=== PATIENT | female | born 1995 | race Asian ===

== ENCOUNTER 2022-08-28 14:29 | Outpatient (REF) | payer OTHER, SELFPAY ==
--- NOTE | ~2022-08-28 | US_ITS ---
EXAMINATION: US DIAGNOSTIC ULTRASOUND BREAST, LEFT CLINICAL INFORMATION: 27-year-old with chronic fullness retroareolar left breast for years. No cyclical changes. No discharge. No known family history breast cancer. No prior breast imaging. COMPARISON: None. TECHNIQUE: Ultrasound of the left breast is targeted to the subareolar and periareolar region. Patient is able to point to the area of concern at time of imaging. Comparison imaging with the right breast is also performed during real-time imaging. Grayscale imaging and color Doppler are performed without and with harmonics. FINDINGS: There is no focal suspicious finding. There is no cystic or solid mass, architectural abnormality, duct ectasia, or edema in the soft tissue planes. Results are discussed with the patient at time of visit. US/US breast LT limited IMPRESSION: Normal study. ASSESSMENT: BI-RADS 1: Negative RECOMMENDATION: -Patient should be managed based on the clinical impression. -If clinically indicated, further evaluation may be considered with surgical consult. Decision to proceed with biopsy should be based on clinical grounds and degree of clinical concern. -Screening mammography beginning age 40, or earlier as clinical risk factors warrant.
== END 2022-08-28 14:30 | disposition home or self-care (01) ==
LOC: HO.MAMMO 14:29
PROVIDERS: PCP Registered Nurse; Visit Provider Registered Nurse
DX: N64.89 Other specified disorders of breast (principal)
CPT/HCPCS: 76642

== ENCOUNTER 2023-08-19 15:41 | Outpatient (REF) | payer OTHER, SELFPAY ==
[2023-08-19 16:06] LABS: MANUAL DIFF FLAG NO
[2023-08-19 16:16] LABS: Basophils Absolute Auto 0.1 X10*3/uL (0.0-0.2); Basophils Percent Auto 0.7 % (0-2); Eosinophils Absolute Auto 0.1 X10*3/uL (0.0-0.4); Eosinophils Percent Auto 0.7 % (0-4); Hemoglobin 11.5 g/dl (12.0-16.0); Imm Gran Abs Auto 0.02 X10*3/uL (0.00-0.03); Imm Gran Pct Auto 0.3 % (0.0-0.4); Lymphocytes Absolute Auto 2.2 X10*3/uL (1.2-4.9); Lymphocytes Percent Auto 30.5 % (20-40); Mean Corpuscular HGB Conc 31.9 g/dl (31.0-35.0); Mean Corpuscular Hemoglobin 28.8 pg (27.0-33.0); Mean Corpuscular Volume 90.2 fL (80.0-98.0); Mean Platelet Volume 12.1 fL (9.4-12.3); Monocytes Absolute Auto 0.5 X10*3/uL (0.1-1.2); Monocytes Percent Auto 6.2 % (2-11); Neutrophils Absolute Auto 4.5 x10*3/uL (2.0-8.3); Neutrophils Percent Auto 61.6 % (45-73); Platelet Count 284 X10*3/uL (160-400); Red Blood Count 3.99 X10*6/uL (4.20-5.50); Red Cell Distribution Width 13.2 % (11.0-16.0); White Blood Count 7.3 X10*3/uL (4.8-10.8)
[2023-08-19 17:04] LABS: Alanine Aminotransferase 7 U/L (0-31); Albumin Level 4.4 g/dL (3.5-5.0); Alkaline Phosphatase 58 U/L (39-117); Anion Gap 9 (12-20); Aspartate Amino Transferase 12 U/L (5-31); Bilirubin Total 0.2 mg/dL (0.0-1.0); Blood Urea Nitrogen 9 mg/dL (9-16); Calcium 9.9 mg/dL (8.4-10.2); Carbon Dioxide 23 mmol/L (22-29); Chloride 109 mmol/L (96-108); Estimated Glomerular Filt Rate > 60; Glucose Random 82 mg/dL (60-115); Magnesium 2.3 mg/dL (1.6-2.6); Sodium 137 mmol/L (135-145); Total Protein 7.9 g/dL (6.5-8.0)
== END 2023-08-19 15:42 | disposition home or self-care (01) ==
LOC: HO.HHCL 15:41
PROVIDERS: Visit Provider Registered Nurse
DX: R20.0 Anesthesia of skin (principal); R25.2 Cramp and spasm
CPT/HCPCS: 36415; 80053; 83735; 85025

== ENCOUNTER 2023-08-31 14:44 | Outpatient (REF) | payer OTHER, SELFPAY ==
[2023-08-31 16:39] LABS: Iron 79 mcg/dL (30-160); Percent Iron Saturation 20 % (15-50); Total Iron Binding Capacity 399 mcg/dL (228-428); Unsaturated Iron Binding 320 ug/dL
[2023-08-31 16:46] LABS: Ferritin 30 ng/mL (10-122)
[2023-08-31 16:57] LABS: Folate 7.3 ng/mL (> or = 4.0); Vitamin B12 328 pg/mL (200-900)
[2023-08-31 21:12] LABS: Influenza A PCR NEGATIVE (Negative); Influenza B PCR NEGATIVE (Negative); Resp Syncy Virus RNA Qual PCR NEGATIVE (Negative); SARS COV2 PCR INHOUSE NEGATIVE (Negative)
== END 2023-08-31 14:45 | disposition home or self-care (01) ==
LOC: HO.HHCL 14:44
PROVIDERS: Internal Medicine Geriatric Medicine; Visit Provider Registered Nurse
DX: J06.9 Acute upper respiratory infection, unspecified (principal); D64.9 Anemia, unspecified
CPT/HCPCS: 0241U; 36415; 82607; 82728; 82746; 83540; 87070

== ENCOUNTER 2024-07-11 16:14 | Outpatient (REF) | payer OTHER, SELFPAY ==
[2024-07-11 17:48] LABS: MANUAL DIFF FLAG NO
[2024-07-11 17:58] LABS: Basophils Percent Auto 0.5 % (0-2); Eosinophils Absolute Auto 0.1 X10*3/uL (0.0-0.4); Eosinophils Percent Auto 1.5 % (0-4); Hematocrit 40.2 % (37.0-47.0); Hemoglobin 13.2 g/dl (12.0-16.0); Imm Gran Abs Auto 0.02 X10*3/uL (0.00-0.03); Imm Gran Pct Auto 0.3 % (0.0-0.4); Lymphocytes Absolute Auto 2.3 X10*3/uL (1.2-4.9); Lymphocytes Percent Auto 31.1 % (20-40); Mean Corpuscular HGB Conc 32.8 g/dl (31.0-35.0); Mean Corpuscular Hemoglobin 29.1 pg (27.0-33.0); Mean Corpuscular Volume 88.7 fL (80.0-98.0); Mean Platelet Volume 11.9 fL (9.4-12.3); Monocytes Absolute Auto 0.5 X10*3/uL (0.1-1.2); Monocytes Percent Auto 6.5 % (2-11); Neutrophils Absolute Auto 4.4 x10*3/uL (2.0-8.3); Neutrophils Percent Auto 60.1 % (45-73); Platelet Count 314 X10*3/uL (160-400); Red Blood Count 4.53 X10*6/uL (4.20-5.50); Red Cell Distribution Width 13.2 % (11.0-16.0); White Blood Count 7.3 X10*3/uL (4.8-10.8)
[2024-07-13 12:48] LABS: Lyme Abs Screen <0.90 index
== END 2024-07-11 16:15 | disposition home or self-care (01) ==
LOC: HO.HHCL 16:14
PROVIDERS: Visit Provider Internal Medicine
DX: R21 Rash and other nonspecific skin eruption (principal)
CPT/HCPCS: 36415; 85025; 86617; 86618

== ENCOUNTER 2025-04-12 15:24 | Outpatient (REF) | payer OTHER, SELFPAY ==
--- OUTSIDE RECORDS SUMMARY | 2025-04-12 15:54 | XMS_ITS | Encounter Summary ---
Author Organization [employer] Address [address] [place] [address] 7 [place] [address] Care Team Providers Care Business Data Analyst Name Role Phone Shelby Patiño MD Primary Care Pro vider Reason for Referral * Consultation (Routine) - Authorized Specialty Diagnoses / Procedures Referred By Contac t Referred To Contact Optometry Diagnoses Annual physical exam Shelby Patiño MD [address] [place] [address] Phone: tel: fax: [facility] OPTOMETRY [address] [place] [address] Phone: tel: fax: Referral ID Status Reason Start Date Expiration Date Visits Requested Visits Authorized [id number] Authorized Consult and Treat 04/12/2025 04/12/2026 1 1 Encounter Details Date Type Department Care Team (Late st Contact Info) Description 04/12/2025 1:45 PM EDT Office Visit [facility] MEDICINE [address] [place] [phone] Shelby Patiño MD [address] [place] [address] Annual physical exam (Primary Dx); Dysgeusia; Diarrhea, unspecified type Social History Tobacco Use Types Packs/Day Years Used Date Smoking Tobacco: Never Passive Smoke Exposure: Never Smokeless Tobacco: Never Alcohol Use Standard Drinks/Week Comments Not Currently 0 (1 standard drink = 0.6 oz pur e alcohol) Depression Answer Date Recorded Patient Health Questionnaire-9 Score 16 04/12/2025 Patient Health Questionnaire-9 Score 16 04/12/2025 Last PHQ-9: Questionnaire Data Not on file 0 04/12/2025 Housing Stability Answer Date Recorded What is your housing situation today? I have darrin acuna 09/22/[address] you li ve. Do you have problems with any of the following? None of the above 09/22/2023 Food Insecurity Answer Date Recorded Within the past 12 months, y ou worried that your food would run out before you got money to buy more: Never True 09/22/2023 Within the past 12 months,th e food you bought just didn't last and you didn't have enough money to get more: Never True Transportation Answer Date Recorded In the past 12 months, has l ack of transportation kept you from medical appts, meetings, work or from getting things needed for daily living? No 09/22/2023 Utilities Answer Date Recorded In the past 12 months, has t he electric, gas, oil or water company threatened to shut off services in your home? No 09/22/2023 Depression Answer Date Recorded Patient Health Questionnaire-2 Score 4 04/12/2025 Comments Unknown Sex and Gender Information Value Date Recorded Sex Assigned at Female 09/28/2022 10:40 AM EDT Legal Sex Female 10:40 AM EDT Gender Identity Female 09/28/2022 10:40 AM EDT Sexual Orientation Straight 09/28/2022 10 :40 AM EDT documented as of this encounter Last Filed Vital Signs Vital Sign Reading Time Taken Comments Blood Pressure 133/73 04/12/2025 2:09 PM EDT Pulse 82 04/12/2025 2:09 PM EDT Temperature 36.6 ??C (97.8 ??F) 04/12/2025 2:09 PM ED T Respiratory Rate 17 04/12/2025 2:09 PM EDT Oxygen Saturation - - Inhaled Oxygen Concentration - - Weight 60.3 kg (133 lb) 04/12/2025 2:09 PM EDT Height 160 cm (5' 3 ) 04/12/2025 2:09 PM EDT Body Mass Index 23.56 04/12/2025 2:09 PM EDT documented in this encounter Functional Status * Over the past 2 weeks, how often have you been bothered by any of the following problems? Question Answer Date of Assessment Author Patient Health Questionnaire -2 Score 4 04/12/2025 3:30 PM EDT Opal Rasmussen MA * Little interest or pleasure in doing things Answer Date of Assessment Author More than half the days 04/12/2025 3:30 PM EDT Opal Ayala MA * Feeling down, depressed, or hopeless Answer Date of Assessment Author More than half the days 04/12/2025 3:30 PM EDT Opal Ayala MA * Trouble falling or staying asleep, or sleeping too much Answer Date of Assessment Author Nearly every day 04/12/2025 3:30 PM EDT Opal Rasmussen MA * Feeling tired or having little energy Answer Date of Assessment Author Nearly every day 04/12/2025 3:30 PM EDT Opal Rasmussen MA * Poor appetite or overeating Answer Date of Assessment Author Several days 04/12/2025 3:30 PM EDT Samson Rasmussen MA * Feeling bad about yourself - or that you are a failure or have let yourself or your family down Answer Date of Assessment Author More than half the days 04/12/2025 3:30 PM EDT Opal Ayala MA * Trouble concentrating on things, such as reading the newspaper or watching television Answer Date of Assessment Author More than half the days 04/12/2025 3:30 PM EDT Opal Ayala MA * Moving or speaking so slowly that other people could have noticed? Or the opposite - being so fidgety or restless that you have been moving around a lot more than usual. Answer Date of Assessment Author Several days 04/12/2025 3:30 PM EDT Samson Rasmussen MA * Thoughts that you would be better off or hurting yourself in some way Answer Date of Assessment Author Not at all 04/12/2025 3:30 PM EDT Samson Rasmussen MA * Patient Health Questionnaire-9 Score Answer Date of Assessment Author 16 04/12/2025 3:30 PM EDT Samson Rasmussen MA * How difficult have these problems made it for you to do your work, take care of things at home, or get along with other people? Answer Date of Assessment Author Somewhat difficult 04/12/2025 3:30 PM EDT Opal Rasmussen MA * Over the last 2 weeks, how often have you been bothered by any of the following problems? Question Answer Date of Assessment Author Feeling nervous, anxious, or on edge 1 04/12/2025 3:30 PM EDT Opal Rasmussen MA Not being able to stop or co ntrol worrying 2 04/12/2025 3:30 PM EDT Opal Rasmussen MA Worrying too much about diff erent things 1 04/12/2025 3:30 PM EDT Opal Rasmussen MA Trouble relaxing 2 04/12/2025 3:30 PM EDT Opal Ayala MA Being so restless that it is hard to sit still 1 04/12/2025 3:30 PM EDT Opal Rasmussen MA Becoming easily annoyed or irritable 1 04/12/2025 3:30 PM EDT Opal Rasmussen MA Feeling afraid as if somethi ng awful might happen 0 04/12/2025 3:30 PM EDT Opal Rasmussen MA MITESH-7 Total Score 8 04/12/2025 3:30 PM EDT Opal Rasmussen MA documented as of this encounter Plan of Treatment Upcoming Encounters Date Type Department Care Team (Late st Contact Info) Description 06/08/2025 2:15 PM EDT Office Visit [facility] [address] [place], [place] [phone] Shelby Patiño MD [address] [place] [address] Scheduled Orders Name Type Priority Associated Diagnoses Orde r Schedule Helicobacter pylori, Urea Breath Test Lab Routine Dysgeusia Expected: 04/12/2025 (Approximate), Expires: 04/12/2026 CBC Lab Routine Annual physical exam Expected: 04/12/2025 (Approximate), Expires: 04/12/2026 Iron And Total Iron Binding Capacity Lab Routine Annual physical exam Expected: 04/12/2025 (Approximate), Expires: 04/12/2026 Ferritin Lab Routine Annual physical exam Expected: 04/12/2025 (Approximate), Expires: 04/12/2026 Chlamydia/N. Gonorrhoeae RNA, TMA, Urogenitial Microbiology Routine Annual physical exam Expected: 04/12/2025 (Approximate), Expires: 04/12/2026 Comprehensive Metabolic Panel Lab Routine Annual physical exam Expected: 04/12/2025 (Approximate), Expires: 04/12/2026 Hemoglobin A1c Lab Routine Annual physical exam Expected: 04/12/2025 (Approximate), Expires: 04/12/2026 Hepatitis B Core Antibody, Total Lab Routine Annual physical exam Expected: 04/12/2025 (Approximate), Expires: 04/12/2026 Hepatitis B Surface Antibody, Qualitative Lab Routine Annual physical exam Expected: 04/12/2025 (Approximate), Expires: 04/12/2026 Hepatitis B surface antigen, EIA Lab Routine Annual physical exam Expected: 04/12/2025 (Approximate), Expires: 04/12/2026 Hepatitis C Antibody with Reflex to HCV, RNA, Quantitative, Real-Time PCR Lab Routine Annual physical exam Expected: 04/12/2025 (Approximate), Expires: 04/12/2026 HIV-1/2 Antigen and Antibodies, Fourth Generation, with Reflexes Lab Routine Annual physical exam Expected: 04/12/2025 (Approximate), Expires: 04/12/2026 Syphilis Screen Lab Routine Annual physical exam Expected: 04/12/2025 (Approximate), Expires: 04/12/2026 TSH with Reflex to Free T4 Lab Routine Annual physical exam Expected: 04/12/2025 (Approximate), Expires: 04/12/2026 Celiac Disease Comprehensive Panel Lab Routine Diarrhea, unspecified type Expected: 04/12/2025, Expires: 04/12/2026 Scheduled Referrals Name Type Priority Associated Diagnoses Orde r Schedule Referral to [facility] Outpatient Referral Routine Annual physical exam Expected: 04/12/2025 (Approximate), Expires: 04/12/2026 documented as of this encounter Visit Diagnoses Diagnosis Annual physical exam- Primary Routine general medical examination at a health care facility Dysgeusia Disturbances of sensation of smell and taste Diarrhea, unspecified type documented in this encounter Additional Health Concerns Assessment Noted Time PHQ-9 Depression Total Score: 16 04/12/ 025 3:30 PM EDT documented as of this encounter Care Teams Business Data Analyst Relationship Specialty Start Date End Date Shelby Patiño MD [address] [place] [phone] PCP - General Internal Medicine 09/02/23 documented as of this encounter
--- OUTSIDE RECORDS SUMMARY | 2025-04-12 15:54 | XMS_ITS | Clinical Summary ---
Author Organization [employer] Address [address] [place] [address] 7t [place] [address] Care Team Providers Care Respiratory Therapy Technician Name Role Phone Shelby Patiño MD Primary Care Pro vider Allergies No known active allergies Medications norgestimate-ethin yl estradiol (Ortho-Cyclen) 0.25-35 MG-MCG tabletIndications: Menorrhagia with regular cycle TAKE 1 TABLET BY MOUTH EVERY DAY 84 tablet 01/23/20 25 Active carboxymethylcellu lose (Refresh Plus) 0.5 % ophthalmic solution 1 drop if needed for dry eyes. Active acetaminophen (Tylenol) 325 MG tablet TAKE 2 TABLETS BY MOUTH EVERY 6 HOURS NEEDED FOR PAIN OR HEADACHE OR FEVER 08/05/20 22 025 Discontin ued(Other ) Ketotifen Fumarate 0.035 % solutionIndication s:Red eyes,Allergic conjunctivitis of right eye Administer 1 drop into both eyes every 12 (twelve) hours if needed (eye itching). USE 1 DROP INTO THE AFFECTED EYE TWICE A DAY IF NEEDED FOR ITCHING OR REDNESS 5 mL 2 06/16/20 24 025 Discontin ued(Other ) cetirizine (ZyrTEC) 10 MG tablet Take 1 tablet (10 mg) by mouth Once per day. 30 tablet 2 07/11/20 24 025 Discontin ued(Other ) Active Problems Problem Noted Date Diagnosed Date Leg cramps 09/02/2023 Overview (09/02/2023): Occur at night and cause foot pain. Located in calf. Assessment & Plan (09/02/2023 1:28 PM EDT): Ddx: poor circulation, electrolyte imbalance, restless leg Will check CMP, magnesium to confirm electrolytes are normal Also educated pt to strengthen muscles: weight lifting with proper body positioning, yoga, Ck chi. Stretching and increased water intake may improve cramps Recommend regular exercise and may benefit from compression stockings at work to prevent leg fatigue F/u 3 months with new PCP or sooner PRN Numbness of fingers of both hands 09/02/2023 Overview (09/02/2023): Acute onset < 1 week Intermittent numbness of fingers Assessment & Plan (09/02/2023 1:25 PM EDT): Ddx: poor circulation, damage to capillaries d/t cold exposures, electrolyte imbalance Will check CMP, magnesium to confirm electrolytes are normal Recommend wear gloves avoid cold exposure RTC 1-2 weeks if numbness continues to worsen F/u 1-2 months with new PCP or sooner PRN Menorrhagia with regular cycle 09/02/2023 Overview (09/02/2023): Decreased menstraul flow: Cycle still regular, comes every month, lasts 4 days. She is using fewer pads. Has been taking OCP > 2 years. Denies SE. Before the medicine her cycle was either irregular, not present, or very heavy, lasting weeks at a time. 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 Pt has flat feet and does not have even wearing of her shoes due to an altered gait. Chronic bunions Causing pain. Shoes feel tight. Pain worse after walking all day Wears sneakers, supportive. Assessment & Plan (09/02/2023 1:23 PM EDT): Refer podiatry for further treatment Recommended pt to give break from tight shoes when possible to allow bunions to not be compressed F/u PRN with new PCP Episcleritis of left eye 06/08/2023 Mild depression 02/18/2023 Health care maintenance 02/18/2023 Overview (02/18/2023): Routine Health Maintenance: Immunizations: reports 3 COVID vaccines, yearly flu vaccine, and Tdap 5 year ago. no records. Pt will request records from previous PCP at [facility]. Pap Smear: Unknown hx. Pt will request records from previous PCP at [facility]. Eye: Will discuss at next visit Dental: will discuss as next visit Assessment & Plan (09/02/2023 1:19 PM EDT): Educated pt it is safe to start Multivitamin but check ingredients Also make sure none of the vitamins in supplement exceed ULN. Check [employer] supplement database for details on vitamins/minerals F/u PRN Polycystic ovary syndrome 08/05/2022 Resolved Problems Problem Noted Date Diagnosed Date Resolved Date Irregular periods 08/05/2022 09/02/2023 Encounters Date Type Department Care Team Description 04/12/2025 1:45 PM EDT Office Visit [facility] MEDICINE [address] [place] [address] Shelby Patiño MD Annual physical exam (Primary Dx); Dysgeusia; Diarrhea, unspecified type 04/12/2025 Travel 04/11/2025 Telephone [facility] [address] [place] [address] Shelby Patiño MD chartprep 04/06/2025 Patient Outreach [facility] [address] [place] [address] Shelby Patiño MD Pre-visit Planning (SDOH unable to reach LVM) 01/23/2025 Refill [facility] [address] [place] [address] Shelby Patiño MD Menorrhagia with regular cycle from Last 3 Months Family History Medical History Relation Name Comments Hyperlipidemia Mother Hypertension Mother Heart disease Paternal Grandmother Relation Name Status Comments Mother Paternal Grandmother Social History Tobacco Use Types Packs/Day Years Used Date Smoking Tobacco: Never Passive Smoke Exposure: Never Smokeless Tobacco: Never Tobacco Cessation:Counseling Given: Not Answered Alcohol Use Standard Drinks/Week Comments Not Currently 0 (1 standard drink = 0.6 oz pur e alcohol) Depression Answer Date Recorded Patient Health Questionnaire-9 Score 16 04/12/2025 Patient Health Questionnaire-9 Score 16 04/12/2025 Last PHQ-9: Questionnaire Data Not on file 0 04/12/2025 Housing Stability Answer Date Recorded What is your housing situation today? I have darrin armand 09/22/[address] you li [...] Orientation Straight 09/28/2022 10 :40 AM EDT Last Filed Vital Signs Vital Sign Reading Time Taken Comments Blood Pressure 133/73 04/12/2025 2:09 PM EDT Pulse 82 04/12/2025 2:09 PM EDT Temperature 36.6 ??C (97.8 ??F) 04/12/2025 2:09 PM ED T Respiratory Rate 17 04/12/2025 2:09 PM EDT Oxygen Saturation 100% 07/11/2024 3:47 PM EDT Inhaled Oxygen Concentration - - Weight 60.3 kg (133 lb) 04/12/2025 2:09 PM EDT Height 160 cm (5' 3 ) 04/12/2025 2:09 PM EDT Body Mass Index 23.56 04/12/2025 2:09 PM EDT Plan of Treatment Upcoming Encounters Date Type Department Care Team (Late st Contact Info) Description 06/08/2025 2:15 PM EDT Office Visit [facility] [address] [place], [place] [phone] Shelby Patiño MD [address] [place], [place] [phone] Health Maintenance Due Date Last Done Comments Depression Screening 1994 HIV Screening 1994 Family Planning (PISQ) 2009 Hepatitis C Screening 2012 DTaP/Tdap/Td Vaccines (1 - Tdap) 2013 Hepatitis B Vaccines (1 of 3 - 19+ 3-dose series) 2013 Pap Smear 2015 Cervical Cancer Screening 2024 HPV/Cotest 2024 COVID-19 Vaccine (1 - 2023-2 5 season) 2024 Influenza Vaccine (#1) 2024 SDOH Screening 08/19/2024 08/19/2023 Alcohol/Substance Use Screening 04/12/2026 Tobacco Screening 04/12/2026 04/12/2025 Zoster Vaccines (1 of 2) 2044 RSV Patients and Pa tients Aged 60 years or older (1 - 1-dose 75+ series) 2069 HIB Vaccines Aged Out No longer eligi ble based on patient's age to complete this topic HPV Vaccines Aged Out No longer eligi ble based on patient's age to complete this topic Hepatitis A Vaccines Aged Out No long er eligible based on patient's age to complete this topic IPV Vaccines Aged Out No longer eligi ble based on patient's age to complete this topic Meningococcal B Vaccine Aged Out No l onger eligible based on patient's age to complete this topic Meningococcal Vaccine Aged Out No willow melissa eligible based on patient's age to complete this topic Pneumococcal Vaccine: Pediat rics (0 to 5 Years) and At-Risk Patients (6 to 49) Years) Aged Out No longer elig ible based on patient's age to complete this topic RSV under 20 months Aged Out No longe r eligible based on patient's age to complete this topic Rotavirus Vaccines Aged Out No longer eligible based on patient's age to complete this topic Insurance [employer] Care Teams Respiratory Therapy Technician Relationship Specialty Start Date End Date Shelby Patiño MD [address] [place] [phone] PCP - General Internal Medicine 09/02/23
--- OUTSIDE RECORDS SUMMARY | 2025-04-12 15:54 | XMS_ITS | Encounter Summary ---
Author Organization [employer] Address [address] [facility] 7t [place] [address] Care Team Providers Care Hematology Oncology Consultant Name Role Phone Shelby Patiño MD Primary Care Pro vider Encounter Details Date Type Department Care Team (Latest Contact Info) Description 04/12/2025 Travel Social History Tobacco Use Types Packs/Day Years [...] AM EDT documented as of this encounter Functional Status * Over the [...] Description 06/08/2025 2:15 PM EDT Office Visit [facility] [address] [place] [address] Shelby Patiño MD [address] [place] [address] documented as of this encounter Visit Diagnoses Not on filedocumented in this encounter Additional Health Concerns Assessment Noted Time PHQ-9 Depression Total Score: 16 04/12/ 025 3:30 PM EDT documented as of this encounter Care Teams Hematology Oncology Consultant Relationship Specialty Start Date End Date Shelby Patiño MD [address] [place] [address] PCP - General Internal Medicine 09/02/23 documented as of this encounter
--- OUTSIDE RECORDS SUMMARY | 2025-04-12 15:54 | XMS_ITS | Encounter Summary ---
Author Organization [employer] Address [address] [place] [address] 7 [place] [address] Care Team Providers Care Tube Teller Name Role Phone Shelby Patiño MD Primary Care Pro vider Reason for Visit * Reason Onset Date Comments Med Refill 11/30/2023 Encounter Details Date Type Department Care Team ([facility] st Contact Info) Description 11/30/2023 Telephone [facility] MED[facility] [address] [place] [address] Shelby Patiño MD [address] [place] [address] Med Refill Social History Tobacco Use Types Packs/Day Years Used Date Smoking Tobacco: Never Passive Smoke Exposure: Never Smokeless Tobacco: Never Alcohol Use Standard Drinks/Week Comments Not Currently 0 (1 standard drink = 0.6 oz pur e alcohol) Housing Stability Answer Date Recorded What is [...] off services in your home? No 09/22/2023 Comments Unknown Sex and Gender Information Value Date Recorded Sex Assigned at Female 09/28/2022 10:40 AM EDT Legal Sex Female 10:40 AM EDT Gender Identity Female 09/28/2022 10:40 AM EDT Sexual Orientation Straight 09/28/2022 10 :40 AM EDT documented as of this encounter Miscellaneous Notes * Telephone Encounter - Suyapa Carreno LPN - 11/30/2023 12:29 PM EST Medication was sent to [id number] on 08/19/23 #90 with 3 refills. * Telephone Encounter - Justice Anderson - 11/30/2023 12:16 PM EST TC from pt requesting medication refill. Medications needing refill : Estarylla 0.25-35 MG-MCG tablet To be sent to: [id number] - [address] documented in this encounter Plan of Treatment Upcoming Encounters Date Type Department Care Team (Late st Contact Info) Description 06/08/2025 2:15 PM EDT Office Visit [facility] [address] [place] [address] Shelby aPtiño MD [address] [place] [address] documented as of this encounter Visit Diagnoses Not on filedocumented in this encounter Care Teams Tube Teller Relationship Specialty Start Date End Date Shelby Patiño MD [address] [place] [address] PCP - General Internal Medicine 09/02/23 documented as of this encounter
--- OUTSIDE RECORDS SUMMARY | 2025-04-12 15:54 | XMS_ITS | Encounter Summary ---
Author Organization [employer] Address [address] [place] [address] 7 [place] [address] Care Team Providers Care Pricing Supervisor Name Role Phone Shelby Patiño MD Primary Care Pro vider Reason for Visit * Reason Onset Date Comments chartprep 04/11/2025 Encounter Details Date Type Department Care Team ([facility] Contact Info) Description 04/11/2025 Telephone [facility]INE [address] [place] [address] Shelby Patiño MD [address] [place] [address] chartprep Social History Tobacco Use Types Packs/Day Years [...] enough money to get more: Never True 10/ Transportation Answer Date Recorded In the past [...] encounter Miscellaneous Notes * Telephone Encounter - Shakira Anderson MA - 04/11/2025 3:53 PM EDT ..Chart Prep Labs: not applicable Images: not applicable Vaccines due: Covid Due, Hep B Due, and Flu Due Referrals: Not Applicable Screenings: PAP Overdue care gaps: Sbirt, SDOH, PQ9, GAD7, Disability , and Oral Health documented in this encounter Plan of Treatment Upcoming Encounters Date Type Department Care Team (Late st Contact Info) Description 06/08/2025 2:15 PM EDT Office Visit [facility] MED[facility]INE [address] [place] [address] Shelby Patiño MD [address] [place] [phone] documented as of this encounter Visit Diagnoses Not on filedocumented in this encounter Care Teams Pricing Supervisor Relationship Specialty Start Date End Date Shelby Patiño MD [address] [place] [phone] PCP - General Internal Medicine 09/02/23 documented as of this encounter
[2025-04-12 16:26] LABS: Hemoglobin 12.9 g/dl (12.0-16.0); Mean Corpuscular HGB Conc 32.3 g/dl (31.0-35.0); Mean Corpuscular Hemoglobin 28.4 pg (27.0-33.0); Mean Corpuscular Volume 87.9 fL (80.0-98.0); Mean Platelet Volume 11.6 fL (9.4-12.3); Platelet Count 292 X10*3/uL (160-400); Red Blood Count 4.55 X10*6/uL (4.20-5.50); Red Cell Distribution Width 13.5 % (11.0-16.0); White Blood Count 4.7 X10*3/uL (4.8-10.8)
[2025-04-12 16:31] LABS: Estimated Average Glucose 117 mg/dL; Hemoglobin A1C 129.2779 umol/L; Hemoglobin A1c % 5.7 % (<6.0)
[2025-04-12 16:47] LABS: Alanine Aminotransferase 33 U/L (0-31); Albumin Level 4.6 g/dL (3.5-5.0); Alkaline Phosphatase 75 U/L (39-117); Anion Gap 13 (12-20); Aspartate Amino Transferase 35 U/L (5-31); Bilirubin Total 0.3 mg/dL (0.0-1.0); Blood Urea Nitrogen 10 mg/dL (9-16); Calcium 9.7 mg/dL (8.4-10.2); Carbon Dioxide 25 mmol/L (22-29); Chloride 106 mmol/L (96-108); Estimated Glomerular Filt Rate > 60; Glucose Random 92 mg/dL (60-115); Iron 41 mcg/dL (30-160); Percent Iron Saturation 11 % (15-50); Potassium 3.8 mmol/L (3.3-5.1); Sodium 140 mmol/L (135-145); Total Iron Binding Capacity 375 mcg/dL (228-428); Total Protein 8.4 g/dL (6.5-8.0); Unsaturated Iron Binding 334 ug/dL
[2025-04-12 17:04] LABS: Ferritin 41 ng/mL (10-122); TSH reflex Free T4 1.53 uIU/mL (0.32-4.0)
[2025-04-12 17:43] LABS: CT PCR NOT DETECTED (Not Detect.); NG PCR NOT DETECTED (Not Detect.)
[2025-04-13 08:32] LABS: Syphilis Screen Nonreactive (Nonreactive)
[2025-04-13 08:59] LABS: HBS Num1 > 1000.00 mIU/mL (0-7.99); HBc Num1 0.07 S/CO (0.00-0.79); HBsAGNum1 0.41 S/CO (0.00-0.99); HIV AB/AG Nonreactive (Nonreactive); HIV Num 1 0.05 S/CO (0.00-0.99); Hepatitis B Core Antibody Nonreactive (Nonreactive); Hepatitis B Surface Antigen Negative (Negative); ~HepC Num1 0.08 S/CO (0.00-0.79); ~Hepatitis B Surface Antibody REACTIVE (Nonreactive); ~Hepatitis C Antibody Nonreactive (Nonreactive)
[2025-04-13 13:43] LABS: H Pylori Breath Test Negative (Negative)
[2025-04-13 19:43] LABS: Immunoglobulin A 241 mg/dL (47-310); Transglutaminase IgA <1.0 U/mL
== END 2025-04-12 15:25 | disposition home or self-care (01) ==
LOC: HO.HHCL 15:24
PROVIDERS: Visit Provider Student in an Organized Health Care Education/Training Program
DX: Z00.00 Encounter for general adult medical examination without abnormal findings (principal); R19.7 Diarrhea, unspecified; R43.2 Parageusia
CPT/HCPCS: 80053; 82728; 82784; 83013; 83036; 83540; 84443; 85027; 86364; 86704; 86706; 86780; 86803; 87340; 87389; 87491; 87591

== ENCOUNTER 2025-08-23 16:00 | Outpatient (REF) | payer OTHER, SELFPAY ==
--- OUTSIDE RECORDS SUMMARY | 2025-08-23 15:15 | XMS_ITS | Encounter Summary ---
Author Organization [employer] Address [address] [place] [address] 7 [place] [address] Care Team Providers Care Revenue Manager Name Role Phone Shelby Patiño MD Primary Care Pro vider Reason for Visit * Reason Comments CHW - Office Visit Encounter Details Date Type Department Care Team (Late st Contact Info) Description 08/23/2025 3:15 PM EDT Office Visit [facility] [address] [place] [address] June Bueno CNM [address] [place] [address] Vulvar skin tag (Primary Dx); Pelvic and perineal pain Social History Tobacco Use Types Packs/Day Years [...] housing situation today? I have darrin acuna 04/12/[address] you li ve. Do you have problems with any of the following? None of the above 04/12/2025 Food Insecurity Answer Date Recorded Within the past 12 months, y ou worried that your food would run out before you got money to buy more: Never True 04/12/2025 Within the past 12 months,th e food you bought just didn't last and you didn't have enough money to get more: Never True Transportation Answer Date Recorded In the past 12 months, has l ack of transportation kept you from medical appts, meetings, work or from getting things needed for daily living? No 04/12/2025 Utilities Answer Date Recorded In the past 12 months, has t he electric, gas, oil or water company threatened to shut off services in your home? No 04/12/2025 Depression Answer Date Recorded Patient Health Questionnaire-2 Score 4 04/12/2025 Internet Access Answer Date Recorded Internet Access Q1 Yes 04/12/2025 Internet Access Q2 Not on file 04/12/2025 Comments No Intention Date Recorded No desire to become (finding) 0 08/23/2025 Sex and Gender Information Value Date Recorded Sex Assigned at Female 09/28/2022 10:40 AM EDT Legal Sex Female 10:40 AM EDT Gender Identity Female 09/28/2022 10:40 AM EDT Sexual Orientation Straight 09/28/2022 10 :40 AM EDT documented as of this encounter Last Filed Vital Signs Vital Sign Reading Time Taken Comments Blood Pressure 104/68 08/23/2025 3:03 PM EDT Pulse 75 08/23/2025 3:03 PM EDT Temperature 36.8 C (98.3 F) 08/23/2025 3:03 PM EDT Respiratory Rate 14 08/23/2025 3:03 PM EDT Oxygen Saturation 98% 08/23/2025 3:03 PM EDT Inhaled Oxygen Concentration - - Weight 60.1 kg (132 lb 9.6 oz) 08/23/2025 3:03 P M EDT Height - - Body Mass Index 23.49 06/08/2025 2:53 PM EDT documented in this encounter Progress Notes * June Bueno CNM - 08/23/2025 3:15 PM EDTAssociated Order(s): Skin tag removal Subjective Patient ID: Sinai De La Fuente is a 30 y.o. female who presents for skin tag removal Here for skin tag removal. Diaphragmatic breathing taught and discussed dilators at last visit for vaginismus. She has been nervous to get dilators, concerned about vaginal infection risk. Reviewed cleaning practices. Discussed self collected HPV test. She declines today, but might want to do in the future. Review of Systems Objective BP 104/68 (BP Location: Left arm, Patient Position: Sitting, BP Cuff Size: Adult) Pulse 75 Temp98.3 ??F (36.8 ??C) (Oral) Resp 14 Wt 132 lb 9.6 oz (60.1 kg) LMP 08/06/2025 SpO2 98% BMI23.49 kg/m?? Physical Exam Constitutional: Appearance: Normal appearance. Genitourinary: Labia: Right: No rash, tenderness, lesion or injury. Left: No rash, tenderness, lesion or injury. Comments: Skin tag left aspect of mons near inner thigh Neurological: Mental Status: She is alert. Psychiatric: Mood and Affect: Mood normal. Behavior: Behavior normal. Assessment/Plan Diagnoses and all orders for this visit: Vulvar skin tag See procedure note. Report redness, pain, swelling or prolonged bleeding. Reviewed risk of hyper orhypopigmentation, scarring. Reassured, likely benign. Will contact with pathology. Skin tag removal Date/Time: 08/23/2025 3:42 PM Performed by: June Bueno CNM Authorized by: June Bueno CNM Confirmed correct patient, procedure, site, and patient consented: Yes Participating Staff: June Bueno Consent: Consent obtained: Written and verbal Consent given by: Patient Procedure risks and benefits discussed: Yes Patient questions answered: Yes Patient agrees, verbalizes understanding, and wants to proceed: Yes Instructions and paperwork completed: Yes [facility] protocol: Procedure explained and questions answered to patient or proxy's satisfaction: yes Site/side marked: yes Immediately prior to procedure, a time out was called: yes Patient identity confirmed: Verbally with patient Indications: Indications: Patient request/skin irritation from lesion Pre-procedure details: Skin preparation: Chlorhexidine with alcohol Sedation: Sedation type: None Anesthesia: Anesthesia method: Local infiltration Local anesthetic: lidocaine 2% 1ml. Procedure specific details: Area cleansed as above, infiltrated with 1ml 2% lidocaine. Skin tag removed using scissor, hemostasis achieved with pressure. Sterile nonadherent pad applied. Given bacitracin ointment x 5. May apply1-2x daily for next week. Specimen sent to lab for pathology. Post-procedure details: Procedure completion: Tolerated well, no immediate complications Pelvic and perineal pain Reviewed dilator use again. Let me know if/when she begins use as I would like to see her about a month after. May return any time if she wants to do HPV self collection. documented in this encounter Plan of Treatment Upcoming Encounters Date Type Department Care Team (Late st Contact Info) Description 09/06/2025 9:30 AM EDT Office Visit [facility] [address] [place] [address] Shelby Patiño MD [address] [place], [place] [phone] 09/11/2025 2:00 PM EDT Office Visit [facility] [address] [place] [address] Jennifer May, OD [address] [place] [address] documented as of this encounter Procedures Procedure Name Priority Date/Time Associated Diagnosis Comments GENERAL Routine 08/23/2025 3:42 PM EDT Vulvar skin tag documented in this encounter Results * Skin tag removal (08/23/2025 3:42 PM EDT) June Louise CNM - 08/23/2025 3:42 PM EDT June Bueno CNM 08/23/2025 3:50 PM Skin tag removal Date/Time: 08/23/2025 3:42 PM Performed by: June Bueno CNM Authorized by: June Bueno CNM Confirmed correct patient, procedure, site, and patient consented: Yes Participating Staff: June Bueno Consent: Consent obtained: Written and verbal Consent given by: Patient Procedure risks and benefits discussed: Yes Patient questions answered: Yes Patient agrees, verbalizes understanding, and wants to proceed: Yes Instructions and paperwork completed: Yes [facility] protocol: Procedure explained and questions answered to patient or proxy's satisfaction: yes Site/side marked: yes Immediately prior to procedure, a time out was called: yes Patient identity confirmed: Verbally with patient Indications: Indications: Patient request/skin irritation from lesion Pre-procedure details: Skin preparation: Chlorhexidine with alcohol Sedation: Sedation type: None Anesthesia: Anesthesia method: Local infiltration Local anesthetic: lidocaine 2% 1ml. Procedure specific details: Area cleansed as above, infiltrated with 1ml 2% lidocaine. Skin tag removed using scissor, hemostasis achieved with pressure. Sterile nonadherent pad applied. Given bacitracin ointment x 5. May apply 1-2x daily for next week. Specimen sent to lab for pathology. Post-procedure details: Procedure completion: Tolerated well, no immediate complications us June Bueno CNM IN CLINIC/BEDSIDE ORDERAB LES Final Result documented in this encounter Visit Diagnoses Diagnosis Vulvar skin tag- Primary Pelvic and perineal pain documented in this encounter Additional Health Concerns Assessment Noted Time PHQ-9 Depression Total Score: 16 05/15/2 025 3:30 PM EDT documented as of this encounter Care Teams Revenue Manager Relationship Specialty Start Date End Date Shelby Patiño MD [address] [place] [address] PCP - General Internal Medicine 09/02/23 documented as of this encounter
--- OUTSIDE RECORDS SUMMARY | 2025-08-24 07:18 | XMS_ITS | Encounter Summary ---
Author Organization [employer] Address [address] [place] [address] Care Team Providers Care Telemarketing Representative Name Role Phone Shelby Patiño MD Primary Care Pro vider Encounter Details Date Type Department Care Team ([facility] st Contact Info) Description 08/22/2025 Telephone [facility] [address] [place], [place] [phone] Bianca Cook MA Social History Tobacco Use Types Packs/Day Years [...] Q2 Not on file 04/12/2025 Comments No Sex and Gender Information Value Date Recorded Sex Assigned at Female 09/28/2022 10:40 AM EDT Legal Sex Female 10:40 AM EDT Gender Identity Female 09/28/2022 10:40 AM EDT Sexual Orientation Straight 09/28/2022 10 :40 AM EDT documented as of this encounter Miscellaneous Notes * Telephone Encounter - Bianca Cook MA - 08/22/2025 2:18 PM EDT Chart Prep Labs: not applicable Images: not applicable Referrals: not applicable Vaccines due: Covid, Flu, Tdap, and HPV Screenings: pap smear Overdue care gaps: Not applicable documented in this encounter Plan of Treatment Upcoming Encounters Date Type Department Care Team (Late st Contact Info) Description 09/06/2025 9:30 AM EDT Office Visit [facility] [address] [place] [address] Shelby Patiño MD [address] [place] [address] 09/11/2025 2:00 PM EDT Office Visit [facility] [address] [place] [address] Lalo, Jennifer, OD [address] [place] [address] documented as of this encounter Visit Diagnoses Not on filedocumented in this encounter Additional Health Concerns Assessment Noted Time PHQ-9 Depression Total Score: 16 025 3:30 PM EDT documented as of this encounter Care Teams Telemarketing Representative Relationship Specialty Start Date End Date Shelby Patiño MD [address] [place] [phone] PCP - General Internal Medicine 09/02/23 documented as of this encounter
--- OUTSIDE RECORDS SUMMARY | 2025-08-24 07:18 | XMS_ITS | Encounter Summary ---
Author Organization [employer] Address [address] [place] [address] 7 [place] [address] Care Team Providers Care Nursery Teacher Name Role Phone Shelby Patiño MD Primary Care Pro vider Reason for Visit * Reason Onset Date Comments Med Refill 06/22/2025 Encounter Details Date Type Department Care Team (Late st Contact Info) Description 06/22/2025 Refill [facility] [address] [place] [address] Judy Brian MD [address] [place] [address] Menorrhagia with regular cycle Social History Tobacco Use Types Packs/Day Years [...] Access Q2 Not on file 04/12/2025 Comments Unknown Sex and Gender Information Value Date Recorded Sex Assigned at Female 09/28/2022 10:40 AM EDT Legal Sex Female 10:40 AM EDT Gender Identity Female 09/28/2022 10:40 AM EDT Sexual Orientation Straight 09/28/2022 10 :40 AM EDT documented as of this encounter Plan of Treatment Upcoming Encounters Date Type Department Care Team (Late st Contact Info) Description 09/06/2025 9:30 AM EDT Office Visit [facility] [address] [place] [address] Shelby Patiño MD [address] [place] [address] 09/11/2025 2:00 PM EDT Office Visit [facility] [address] [place] [address] Lalo, Jennifer, OD [address] [place] [address] documented as of this encounter Visit Diagnoses Diagnosis Menorrhagia with regular cycle documented in this encounter Additional Health Concerns Assessment Noted Time PHQ-9 Depression Total Score: 16 025 3:30 PM EDT documented as of this encounter Care Teams Nursery Teacher Relationship Specialty Start Date End Date Shelby Patiño MD [address] [place] [address] PCP - General Internal Medicine 09/02/23 documented as of this encounter
--- OUTSIDE RECORDS SUMMARY | 2025-08-24 07:18 | XMS_ITS | Encounter Summary ---
Author Organization [employer] Address [address] [place] [address] Care Team Providers Care Wellness Program Manager Name Role Phone Shelby Patiño MD Primary Care Pro vider Reason for Visit * Reason Onset Date Comments Med Refill 11/30/2023 Encounter Details Date Type Department Care Team ([facility] st Contact Info) Description 11/30/2023 Telephone [facility] [address] [place] [address] Shelby Patiño MD [address] [place] [address] Med Refill Social History Tobacco Use Types [...] 12:29 PM EST Medication was sent to [facility] #[id number] on 08/19/23 #90 with 3 refills. * Telephone Encounter - Justice Anderson - 11/30/2023 12:16 PM EST TC from pt requesting medication refill. Medications needing refill : Estarylla 0.25-35 MG-MCG tablet To be sent to: [facility] #[id number] - [address] documented in this encounter Plan of Treatment Upcoming Encounters Date Type Department Care Team (Late st Contact Info) Description 09/06/2025 9:30 AM EDT Office Visit [facility] [address] [place] [address] Shelby Patiño MD [address] [place] [address] 09/11/2025 2:00 PM EDT Office Visit [facility] [address] [place] [address] Jennifer May, OD [address] [place] [address] documented as of this encounter Visit Diagnoses Not on filedocumented in this encounter Care Teams Wellness Program Manager Relationship Specialty Start Date End Date Shelby Patiño MD [address] [place] [phone] PCP - General Internal Medicine 09/02/23 documented as of this encounter
--- OUTSIDE RECORDS SUMMARY | 2025-08-24 07:18 | XMS_ITS | Encounter Summary ---
Author Organization [employer] Address [address] [place] [address] 7 [place] [address] Care Team Providers Care Print Developer Name Role Phone Shelby Patiño MD Primary Care Pro vider Reason for Visit * Reason Onset Date Comments Med Refill 06/25/2025 Encounter Details Date Type Department Care Team (Late st Contact Info) Description 06/25/2025 Refill [facility] [address] [place] [address] Judy Brian MD [address] [place] [address] Menorrhagia with regular cycle Social History Tobacco [...] Description 09/06/2025 9:30 AM EDT Office Visit [facility] [address] [place] [address] Shelby Patiño MD [address] [place] [address] 09/11/2025 2:00 PM EDT Office Visit [facility] [address] [place] [address] Lalo, Jennifer, OD [address] [place] [address] documented as of this encounter Visit Diagnoses Diagnosis Menorrhagia with regular cycle documented in this encounter Additional Health Concerns Assessment Noted Time PHQ-9 Depression Total Score: 16 025 3:30 PM EDT documented as of this encounter Care Teams Print Developer Relationship Specialty Start Date End Date Shelby Patiño MD [address] [place] [address] PCP - General Internal Medicine 09/02/23 documented as of this encounter
--- OUTSIDE RECORDS SUMMARY | 2025-08-24 07:18 | XMS_ITS | Clinical Summary ---
Author Organization [employer] Address [address] [facility] 7t [place] [address] Care Team Providers Care Wood Stock Blank Handler Name Role Phone Shelby Patiño MD Primary Care Pro vider Allergies No known active allergies Medications carboxymethylcel lulose (Refresh Plus) 0.5 % ophthalmic solution 1 drop if needed for dry eyes. Active norgestimate-eth inyl estradiol (Estarylla) 0.25-35 MG-MCG tabletIndication s:Menorrhagia with regular cycle Take 1 tablet by mouth Once per day. 84 tablet 07/05/2025 Active Active Problems Problem Noted Date Diagnosed Date Prediabetes 06/09/2025 Leg cramps 09/02/2023 Overview (09/02/2023): Occur at [...] OCP Since it is making her cycles sand operator and regular please continue Estarylla Denies chest [...] will request records from previous PCP at [facility]. Pap Smear: Unknown hx. Pt will request records from previous PCP at [facility]. Eye: Will discuss at next visit Dental: will discuss as next visit Assessment & Plan (09/02/2023 1:19 PM EDT): Educated pt it is safe to start Multivitamin but check ingredients Also make sure none of the vitamins in supplement exceed ULN. Check [employer] supplement database for details on vitamins/minerals F/u PRN Polycystic ovary syndrome 08/05/2022 Resolved Problems Problem Noted Date Diagnosed Date Resolved Date Irregular periods 08/05/2022 09/02/2023 Encounters Date Type Department Care Team Description 08/23/2025 3:15 PM EDT Office Visit [facility] [address] [place] [address] June Bueno CNM Vulvar skin tag (Primary Dx); Pelvic and perineal pain 08/23/2025 Travel 08/22/2025 Telephone [facility] [address] [place] [address] Bianca Cook [place] 07/09/2025 9:30 AM EDT Procedure Visit [facility] [address] [place] [address] June Bueno CNM Pelvic and perineal pain (Primary Dx); Vulvar skin tag; Surveillance of previously prescribed contraceptive pill 07/09/2025 Travel 07/06/2025 Telephone [facility] [address] [place] [address] Shelby Patiño MD chartprep 07/05/2025 Refill [facility] [address] [place] [address] Shelby Patiño MD Menorrhagia with regular cycle 06/25/2025 Refill [facility] [address] [place] [address] Judy Brian MD Menorrhagia with regular cycle 06/22/2025 Refill [facility] [address] [place] [address] Judy Brian MD Menorrhagia with regular cycle 06/08/2025 2:15 PM EDT Office Visit [facility] [address] [place] [address] Shelby Patiño MD Prediabetes (Primary Dx); Leukopenia, unspecified type; Mild depression; Health care maintenance 06/08/2025 Travel 06/07/2025 Telephone [facility] [address] [place] [address] Shelby Patiño MD Appointment Confirmation 06/07/2025 Telephone [facility] [address] [place] [address] Shelby Patiño MD Chart Prep from Last 3 Months Family History Medical History Relation Name Comments Hyperlipidemia Mother Hypertension Mother Heart disease Paternal Grandmother Breast cancer Neg Hx Colon cancer Neg Hx Ovarian cancer Neg Hx Relation Name Status Comments Mother Paternal Grandmother [...] housing situation today? I have darrin armand 04/12/[address] you li [...] oz) 08/23/2025 3:03 P M EDT Height 160 cm (5' 3 ) 06/08/2025 2:53 PM EDT Body Mass Index 23.49 06/08/2025 2:53 PM EDT Plan of Treatment Upcoming Encounters Date Type Department Care Team (Late st Contact Info) Description 09/06/2025 9:30 AM EDT Office Visit [facility] [address] [place] [address] Shelby Patiño MD [address] [place] [address] 09/11/2025 2:00 PM EDT Office Visit [facility] [address] [place], [place] [phone] Jennifer May, OD [address] [place] [address] Health Maintenance Due Date Last Done Comments HPV Vaccines (1 - 3-dose series) 2009 DTaP/Tdap/Td Vaccines (1 - Tdap) 2013 Pap Smear 2015 Cervical Cancer Screening 2024 HPV/Cotest 2024 COVID-19 Vaccine (1 - 2023-2 5 season) 2025 Influenza Vaccine (#1) 2025 Depression Monitoring 10/13/2025 04/12/2025 , 04/12/2025 Alcohol/Substance Use Screening 04/12/2026 04/12/2025 Diabetes: Hemoglobin A1C 04/12/2026 04/12/2025 SDOH Screening 04/12/2026 04/12/2025 Disability Screening 06/08/2026 06/08/2025 Family Planning (PISQ) 08/23/2026 08/23/2025 Tobacco Screening 08/23/2026 08/23/2025 Zoster Vaccines (1 of 2) 2044 RSV Patients and Patients Aged 60 years or older (1 - 1-dose 75+ series) 2069 HIV Screening Completed 04/12/2025 Hepatitis C Screening Completed 04/12/2025 HIB Vaccines Aged Out No longer eligi ble based on patient's age to complete this topic Hepatitis A Vaccines Aged Out No long er eligible based on patient's age to complete this topic Hepatitis B Vaccines Discontinued IPV Vaccines Aged Out No longer eligi ble based on patient's age to complete this topic Meningococcal B Vaccine Aged Out No l onger eligible based on patient's age to complete this topic Meningococcal Vaccine Aged Out No willow melissa eligible based on patient's age to complete this topic Pneumococcal Vaccine: Pediatrics (0 to 5 Years) and At-Risk Patients (6 to 49) Years Aged Out No longer eligible based on patient's age to complete this topic RSV under 20 months Aged Out No longe r eligible based on patient's age to complete this topic Rotavirus Vaccines Aged Out No longer eligible based on patient's age to complete this topic Procedures Procedure Name Priority Date/Time Associated Diagnosis Comments GENERAL Routine 08/23/2025 3:42 PM EDT Vulvar skin tag HEPATITIS C AB W/REFL TO HCV RNA, QN, PCR Routine 04/12/2025 3:27 PM EDT Annual physical exam HIV 1/2 ANTIGEN/ANTIBODY, FOURTH GENERATION W/RFL Routine 04/12/2025 3:27 PM EDT Annual physical exam HEMOGLOBIN A1C Routine 04/12/2025 3:27 PM EDT Annual physical exam from Last 3 Months or Most Recently Relevant to Health Maintenance Results * Skin tag removal (08/23/2025 3:42 [...] proceed: Yes Instructions and paperwork completed: Yes [facility] protocol: Procedure explained and questions answered to [...] CNM IN CLINIC/BEDSIDE ORDERAB LES Final Result * Hepatitis C Antibody with Reflex to HCV, RNA, Quantitative, Real-Time PCR (04/12/2025 3:27 PM EDT) Hepatitis C Antibody Nonreactive Nonreactive [facility] Comment:Antibodies to HCV no t detected; does not exclude early acuteHCV infection. Blood Venous blood specimen / Unknown 04/12/2025 3:27 PM EDT 04/12/2025 4:10 PM EDT us Shelby Durmmond MD LAB BLOOD ORDERAB LES Final Result Performing Organization Address City/[facility]/ZIP Co de Phone Number [facility] [address] [place] [phone] * HIV-1/2 Antigen and Antibodies, Fourth Generation, with Reflexes (04/12/2025 3:27 PM EDT) HIV AB/AG Nonreactive Nonreactive [facility] Comment:HIV-1 p24 Ag and/or HIV-1/HIV-2 Ab not detected.A test result that is nonreactive does not exclude thepossibility of exposure to or infection with HIV-1 and/orHIV-2. Nonreactive results in this assay for individualswith prior exposure to HIV-1 and/or HIV-2 may be due toantigen and antibody levels that are below the limit ofdetection of this assay.The [employer] HIV Ag/Ab Combo assay result andsupplemental assay results should be interpreted inconjunction with the patient's clinical presentation,history and other laboratory results. If the results areinconsistent with clinical evidence, additional testing issuggested to confirm the result. Blood Venous blood specimen / Unknown 04/12/2025 3:27 PM EDT 04/12/2025 4:10 PM EDT us Shelby Drummond MD LAB BLOOD ORDERAB LES Final Result Performing Organization Address [facility]/ZIP Co de Phone Number [facility] [address] [place] [phone] * Hemoglobin A1c (04/12/2025 3:27 PM EDT) Hemoglobin A1c 5.7 <6.0 % [facility] Comment:Hemoglobin A1C Refer ence Range Adults: 4.8 - 6.0 % Non diabetic: < 6.0 % Goal: < 7.0 %Additional Action Suggested: > 8.0 %Note: Hemoglobin A1c results are invalid for patients with abnormal amounts of HbF. Blood transfusions may impact the HbA1c concentration in the patient sample. Estimated Average Glucose 117 mg/dL [facility] Comment:eAG = Estimated ave rage glucose which is %A1C expressed asaverage glucose, using the formula of the W1I-[id number] Glucose study (ADAG), Diabetes Care, Vol.31,#8,Jun. 2007 Blood Venous blood specimen / Unknown 04/12/2025 3:27 PM EDT 04/12/2025 4:10 PM EDT Shelby Drummond MD LAB BLOOD ORDERAB LES Final Result [facility] [address] [place] [address] [phone] from Last 3 Months or Most Recently Relevant to Health Maintenance Insurance [employer] Care Teams Wood Stock Blank Handler Relationship Specialty Start Date End Date Shelby Patiño MD [address] [place], [place] [address] [address] PCP - General Internal Medicine 09/02/23
--- OUTSIDE RECORDS SUMMARY | 2025-08-24 07:18 | XMS_ITS | Encounter Summary ---
Author Organization [employer] Address [address] [place] [address] Care Team Providers Care Video Library Assistant Name Role Phone Shelby Patiño MD Primary Care Pro vider Encounter Details Date Type Department Care Team (Latest Contact Info) Description 08/23/2025 Travel Social History Tobacco Use Types Packs/Day [...] Description 09/06/2025 9:30 AM EDT Office Visit [facility] MEDICINE [address] [place] [address] Shelby Patiño MD [address] [place] [address] 09/11/2025 2:00 PM EDT Office Visit [facility] OPTOMETRY [address] [place] [address] Lalo, Jennifer, OD [address] [place] [address] documented as of this encounter Visit Diagnoses Not on filedocumented in this encounter Additional Health Concerns Assessment Noted Time PHQ-9 Depression Total Score: 16 025 3:30 PM EDT documented as of this encounter Care Teams Video Library Assistant Relationship Specialty Start Date End Date Shelby Patiño MD [address] [place] [address] PCP - General Internal Medicine 09/02/23 documented as of this encounter
== END 2025-08-23 16:01 | disposition home or self-care (01) ==
LOC: HO.LNP 16:00
PROVIDERS: Visit Provider Advanced Practice Midwife
DX: L91.8 Other hypertrophic disorders of the skin (principal)
CPT/HCPCS: 88304; 88305